=== PATIENT | female | born 1955 | race Caucasian/White ===

== ENCOUNTER 2019-03-09 08:35 | Day surgery (SDC) | payer OTHER ==
[~2019-03-09 08:35] MED LIST: Buffered Lidocaine 1% SYRIN* 1 ML/SYRINGE INTRADERM ONE; Famotidine IV* 10 MG/ML 2 ML (20 mg) ONE; Lactated Ringers 1000 ML Bag* 1,000 ML IV SCH
[2019-03-09] MEDS ORDERED: ceFAZolin 2 GM in NS PREMIX(*) 2 GM/100 ML BAG IVPB ONE (08:54)
[2019-03-09] MEDS ORDERED: Midazolam* 1 MG/ML 2 ML VIAL (2 MG) ONE (10:37)
[2019-03-09] MEDS ORDERED: fentaNYL* 50 MCG/ML 2 ML VIAL (100 MCG VIAL) ONE ×3 (10:37→12:53)
[2019-03-09] MEDS ORDERED: Bupivacaine 0.25% SDV PF* 10 ML VIAL INJ ONE (10:38)
[2019-03-09] MEDS ORDERED: Clindamycin 900 MG IVPREMIX(* 900 MG/50 ML SDV IV ONE (10:39)
[2019-03-09] MEDS ORDERED: Dexamethasone IV* 4 MG/ML 1 ML (4 MG) ONE (10:45)
[2019-03-09] MEDS ORDERED: Propofol* 10 MG/ML 20 ML BTL ONE (10:45)
[2019-03-09] MEDS ORDERED: Lidocaine 2% PF * 5 ML VIAL ONE (10:45)
[2019-03-09] MEDS ORDERED: Naloxone* 0.4 MG/ML 1 ML VIAL IV PRN (11:08)
[2019-03-09] MEDS ORDERED: Acetaminophen TAB* 325 MG PO PRN (11:08)
[2019-03-09] MEDS ORDERED: Ondansetron INJ* 2 MG/ML VIAL IV PRN (11:08)
[2019-03-09] MEDS ORDERED: PROCHLORPERAZINE INJ 5 MG/ML 2 ML VIAL IV PRN (11:08)
[2019-03-09] MEDS ORDERED: Levalbuterol 0.63MG/3ML NEB* UNIT OF USE INH PRN (11:08)
[2019-03-09] MEDS ORDERED: DiMENhydriNATE IV* 50 MG/ML VIAL IV PUSH PRN (11:08)
[2019-03-09] MEDS ORDERED: diPHENhydraMINE IV* 50 MG/ML 1 ml VIAL (BENADRYL) IV PRN (11:08)
[2019-03-09] MEDS: fentaNYL* 50 MCG/ML 2 ML VIAL (100 MCG VIAL) IV PRN ×2 (12:58→13:22)
[2019-03-09] MEDS ORDERED: DiMENhydriNATE IV* 50 MG/ML VIAL ONE (13:12)
[2019-03-09] MEDS ORDERED: HYDROcodone/ACETAMIN 5-325 MG* 1 TAB ONE (13:12)
[2019-03-09 14:44] VITALS: BP 130/82
--- NOTE | 2019-03-09 16:08 | OP ---
DATE OF OPERATION: 03/09/19 MERGED WITH [facility] DATE OF : 59 SURGEON: Chaparro Marks MD. [employer]: [employer]. An assistant analyst was needed for the entirety of the procedure to aid in positioning of the arm and retraction. ANESTHESIOLOGIST: Dr. Michaels. ANESTHESIA: General. PRE-OP DIAGNOSES: 1. Right thumb stage 3 carpometacarpal arthritis. 2. 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 POST-OP DIAGNOSES: 1. Right thumb stage 3 carpometacarpal arthritis. 2. 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 OPERATIVE PROCEDURES: 1. Right thumb carpometacarpal arthroplasty with trapeziectomy. 2. Right split flexor carpi radialis distally based tendon transfer for thumb suspension and tendon interposition. 3. Right thumb metacarpophalangeal joint volar capsulodesis. INDICATIONS: Keysha is 63 years old. She has pretty severe basal joint arthritis with MCP joint hyperextension. We talked about her treatment options and she wanted to proceed with surgery. ESTIMATED BLOOD LOSS: 5 mL. COMPLICATIONS: None. FINDINGS: See above and below. DESCRIPTION OF PROCEDURE: Keysha was seen in the preoperative holding area. The correct site, side, and procedure were identified. We came back to the operating room. The arm was prepped and draped in the usual fashion and a time- out was performed. The arm was exsanguinated with the Esmarch and the tourniquet was inflated to 250 mmHg. I went ahead and made a 2 to 3 cm longitudinal incision over the dorsoradial thumb base. Dissection was carried down longitudinally to preserve the traversing sensory nerves. The capsule was opened up longitudinally and the soft tissue was released all about the margins of the trapezium. The trapezium was then excised in a piecemeal fashion with the rongeur. Once it was completely excised, I went ahead and inspected the scaphotrapezoid joint. The articular cartilage area looked very good. I then used sequentially larger drill bits to make a bone tunnel from the dorsoradial metacarpal base to the exiting of the volar ulnar articular surface near the base of the second metacarpal. I irrigated out the wound and turned my attention to the tendon transfer. I made a 1 cm transverse incision just proximal to the wrist flexion crease over the FCR tendon. The sheath was opened. The tendon was brought up out of the wound and split longitudinally and a 26-gauge wire was passed into the tendon split. I came about 8 to 10 cm proximal to that and made a second incision. The sheath was released onto the skin along the length of the tendon. I then used a Maribeth clamp to retrieve the wire in the distal wound and pull back into the proximal wound, releasing half the tendon at the musculotendinous junction. Muscular remnants were excised off the remainder of the tendon. I then used two 26-gauge wires to suture shuttle the tendon free into the tendon down into the thumb base wound. The tendon split was completed all the way down to the base of the second metacarpal. I used the wire to pass the free end of the tendon through the bone tunnel and then back around the intact limb of the FCR tendon. Appropriate tension was set and the tendon transfer was secured with three olzemy-it-xiece 3-0 Ethibond suture, the first sewing off the limbs of the tendon together and the second two sewing intact limb to intact limb. The remainder of the tendon was rolled up and secured as above with a 3-0 Ethibond suture and then placed in a neutral position between the base of the metacarpal and the distal pole of the scaphoid. I then closed the capsule with 3-0 Vicryl suture and the skin with 4-0 nylon suture. Next, I made a V-shaped incision and raised an ulnarly base flap off the volar aspect of the MCP joint. Dissection was carried down. The A1 syeda was released. I went ahead and protected the digital nerves with Ragnell retractors and then used a Wilbarger blader to release the volar plate as a distally based U- flap. I placed two Mini Mitek suture anchors in the metacarpal neck just proximal to the condyles. I then performed a whipstitch up into the volar plate and set the thumb and then tied it down. This brought the thumb down to about 20 degrees of flexion. The hyperextension was eliminated. At this point , everything was looking good. I irrigated out that wound. Skin was closed with 4-0 nylon suture. 0.25% plain Marcaine was infiltrated around all of the wounds. The wounds were dressed with Xeroform, 4x4, sterile Webril and then a thumb spica splint with the IP joint free was applied, holding the MCP joint in about 30 degrees of flexion. Tourniquet was deflated and she was taken to the recovery room in stable condition. [id number]/[facility] #: [id number] BC
== END 2019-03-09 14:45 | disposition home or self-care (01) ==
LOC: OREAST 08:35
PROVIDERS: ATTEND Orthopaedic Surgery Hand Surgery
DX: M18.11 Unilateral primary osteoarthritis of first carpometacarpal joint, right hand (principal); M24.841 Other specific joint derangements of right hand, not elsewhere classified; I10 Essential (primary) hypertension; Z72.0 Tobacco use
CPT/HCPCS: 88304; 88311; C1713; J0690; J1100; J1240; J2250; J2704; J3010; J3490

== ENCOUNTER 2019-05-16 07:01 | Emergency (ER) | payer BC, OTHER ==
[2019-05-16 07:15] VITALS: BP 154/88
--- NOTE | 2019-05-16 07:38 | UC ---
Throat Pain/Nasal Uli HPI - HPI Summary HPI Summary: 1. sore throat x 2 days, pain is 5 out of 10 , better with Tylenol , no fever, no chills , right side ear pain , denies any nasal congestion , no pnd, no cough 2. bilateral eye redness, itchy, clear discharge, no change in vision, no photophobia , no eye pain 3. left foot rash x 1 month , the area is tender and itchy , started from his great toe and extended to mid foot - History of Current Complaint Chief Complaint: UCGeneralIllness Stated Complaint: ST,EAR Time Seen by Provider: 05/16/19 07:15 Hx Obtained From: Patient Onset/Duration: Gradual Onset, Lasting Days - 2, Still Present Severity: Moderate Pain Intensity: 4 Cough: None Associated Signs & Symptoms: Positive: Rash. Negative: Dysphagia, FB Sensation , Drooling, Wheezing, Hoarseness, Sinus Discomfort, Nasal Discharge, Fever, Vomiting - Allergies/Home Medications Allergies/Adverse Reactions: Allergies Allergy/AdvReac Type Severity Reaction Status Date / Time aspirin Allergy Swelling Verified 05/16/19 07:17 cefprozil Allergy Swelling Verified 05/16/19 07:17 ibuprofen Allergy Swelling Verified 05/16/19 07:17 Latex, Natural Rubber Allergy Rash Verified 05/16/19 07:17 nicotine Allergy Tachycardia Verified 05/16/19 07:17 Sulfa (Sulfonamide Allergy Swelling Verified 05/16/19 07:17 Antibiotics) sulfamethoxazole Allergy Swelling Verified 05/16/19 07:17 [From Bactrim] trimethoprim [From Bactrim] Allergy Swelling Verified 05/16/19 07:17 Home Medications: Home Medications Turmeric Root Extract [Ra Turmeric] 500 mg PO DAILY 05/16/19 [History Confirmed 05/16/19] PMH/Surg Hx/FS Hx/Imm Hx Cardiovascular History: Hypertension - Surgical History Surgical History: Yes Surgery Procedure, Year, and Place: tonsils, ADNOIDS, TUBAL LIGATION. Right hand surgery - Family History Known Family History: Positive: Hypertension, Non-Contributory - Social History Alcohol Use: None Substance Use Type: None Smoking Status (MU): Heavy Every Day Tobacco Smoker Type: Cigarettes Amount Used/How Often: 1/2 pack day Length of Time of Smoking/Using Tobacco: 40 yrs Have You Smoked in the Last Year: Yes Review of Systems All Other Systems Reviewed And Are Negative: Yes Constitutional: Positive: Negative Skin: Positive: Rash Eyes: Positive: Drainage, Eye Redness ENT: Positive: Sore Throat Respiratory: Positive: Negative Cardiovascular: Positive: Negative Is Patient Immunocompromised?: No Physical Exam Triage Information Reviewed: Yes Appearance: Well-Appearing, No Pain Distress, Well-Nourished Vital Signs: Initial Vital Signs Temp 97.8 F 05/16/19 07:10 Pulse 95 05/16/19 07:10 Resp 18 05/16/19 07:10 BP 154/88 05/16/19 07:10 Pulse Ox 100 05/16/19 07:10 Vital Signs Reviewed: Yes Eye Exam: Normal Eyes: Positive: Conjunctiva Inflamed, Discharge ENT: Positive: Normal ENT inspection, Hearing grossly normal, Pharynx normal, TMs normal. Negative: Pharyngeal erythema, Nasal congestion, Nasal drainage, Tonsillar swelling, Tonsillar exudate Neck: Positive: Supple, Nontender, No Lymphadenopathy Respiratory: Positive: Chest non-tender, Lungs clear, Normal breath sounds Cardiovascular: Positive: RRR, No Murmur, Pulses Normal Abdominal Exam: Normal Skin: Positive: Rashes - visicular rash left plantar foot, mild tenderness Throat Pain/Nasal Course/Dx - Differential Dx/Diagnosis Provider Diagnosis: Shingles, Allergic conjunctivitis, URI (upper respiratory infection) Discharge ED - Sign-Out/Discharge Documenting (check all that apply): Patient Departure All imaging exams completed and their final reports reviewed: No Studies - Discharge Plan Condition: Stable Disposition: HOME Prescriptions: Fluticasone NASAL SPRAY 50MCG* [Flonase NASAL SPRAY 50MCG*] 2 spray BOTH NARES DAILY #1 btl Tobramycin/Dexameth OPTH.SUSP* [Tobradex 0.3-0.1%*] 1 drop BOTH EYES Q4H #1 btl Patient Education Materials: Shingles (ED), Upper Respiratory Infection (DC), Conjunctivitis (ED) Referrals: Aide Jeff [Primary Care Provider] - 1 Week Additional Instructions: allergic conjunctivitis shingles on left foot, no need for treatment , cont. to monitor - Billing Disposition and Condition Condition: STABLE Disposition: Home
== END 2019-05-16 07:36 | disposition home or self-care (01) ==
LOC: UCCORT 07:01
DX: B02.9 Zoster without complications (principal); H10.10 Acute atopic conjunctivitis, unspecified eye; J06.9 Acute upper respiratory infection, unspecified; I10 Essential (primary) hypertension; F17.210 Nicotine dependence, cigarettes, uncomplicated
CPT/HCPCS: 99212; G0463